=== PATIENT | male | born 1985 | race Caucasian/White ===

== ENCOUNTER → 2016-05-16 | Outpatient (CLI) | payer BC, OTHER ==
[~2016-05-16] MED LIST: TRM50T PO; methylPREDNISolone 80 MG/ML (DEPO MEDROL) VIAL IM ONE
--- NOTE | 2016-05-17 08:09 | PAIN MANAGEMENT ---
Date of note: 05/16/2016 Procedure: Epidural steroid injection at L5-S1 This is a 30-year-old patient of Dr. Betito Mei. The patient presents with a longstanding history of lumbar radiculopathy with disk herniation. He has had previous epidural 2 years ago and has done quite well with that since. He has just recently re-injured himself and has radicular symptoms at L5 bilaterally, but mostly on the left side. Informed consent was achieved for an epidural steroid injection at L5-S1. Orders for procedure verified. Patient denies any bleeding tendencies. After informed consent obtained, the patient was positioned for the lumbar epidural steroid injection. The area was prepped and draped using aseptic technique. The skin and overlying tissues were localized using 3 mL of 1% Preservative-Free lidocaine using a 25-gauge 1.5-inch needle. A 20-gauge Tuohy needle was advanced, using "loss of resistance" technique, to the epidural space. No blood, cerebral spinal fluid, pain, or paresthesia noted on entry of the epidural space. A 1 mL solution of Depo-Medrol 80 mg was injected slowly without mass volume effect. The patient was placed in supine position 15 minutes prior to being released with proper leg strength and vitals. Pre- and post procedure vital signs stable with no sensory or motor deficit noted. Instruction on followup contact and care provided to the patient.
== END ==
LOC: PMC 14:18
PROVIDERS: ATTEND Family Medicine
DX: M54.16 Radiculopathy, lumbar region (principal)
CPT/HCPCS: 62322; J1040

== ENCOUNTER → 2016-06-16 | Outpatient (CLI) | payer BC, OTHER ==
--- NOTE | 2016-06-19 07:40 | PAIN MANAGEMENT ---
Date of note: 06/16/2016 Procedure: Lumbar epidural steroid injection This is a 30-year-old patient of Dr. Betito Mei. The patient presents with a herniated disk and severe lumbar radiculopathy in the dermatome level of L5-S1 in the left leg. Informed consent was achieved for an epidural steroid injection at L5-S1. Orders for procedure verified. Patient denies any bleeding tendencies. After informed consent obtained, the patient was positioned for the lumbar epidural steroid injection. The area was prepped and draped using aseptic technique. The skin and overlying tissues were localized using 3 mL of 1% Preservative-Free lidocaine using a 25-gauge 1.5-inch needle. A 20-gauge Tuohy needle was advanced, using "loss of resistance" technique, to the epidural space. No blood, cerebral spinal fluid, pain, or paresthesia noted on entry of the epidural space. A 1.5 mL solution of Depo-Medrol 120 mg was injected slowly without mass volume effect. The patient was placed in supine position 15 minutes prior to being released with proper leg strength and vitals. Pre- and post procedure vital signs stable with no sensory or motor deficit noted. Instruction on followup contact and care provided to the patient.
== END ==
LOC: PMC 12:53
PROVIDERS: ATTEND Family Medicine
DX: M51.17 Intervertebral disc disorders with radiculopathy, lumbosacral region (principal)
CPT/HCPCS: 62322; J1040